=== PATIENT | male | born 2005 | race Asian ===

== ENCOUNTER 2023-05-23 07:21 | Emergency (ER) | payer OTHER ==
[~2023-05-23] VITALS: Ht 160 cm; Wt 53.5 kg
[2023-05-23 07:25] VITALS: BP_SYST 126; PULSE 65; RESP 18; TEMP 97.6; O2SAT 98
[2023-05-23 07:43] VITALS: BP_SYST 126; PULSE 65; RESP 18; TEMP 97.6; O2SAT 98
[2023-05-23] MEDS ORDERED: LIDOCAINE 1% 10 MG/ML, 20 ML MDV INJ ONE (07:45)
[2023-05-23] MEDS ORDERED: DIPHTH,PERTUSS(ACELL),TET VAC 0.5 ML VIAL (Tdap) I.M. ONE (07:45)
[2023-05-23] MEDS ORDERED: BACITRACIN 1 GM OINT TP ONE (07:45)
== END 2023-05-23 07:45 | disposition home or self-care (01) ==
LOC: SED 07:21
DX: S61.213A Laceration without foreign body of left middle finger without damage to nail, initial encounter (principal); W45.8XXA Other foreign body or object entering through skin, initial encounter; Y93.89 Activity, other specified; Y92.89 Other specified places as the place of occurrence of the external cause; Y99.8 Other external cause status
CPT/HCPCS: 99283; 90715; 90471; 12001; J2001

== ENCOUNTER 2023-09-08 11:13 | Emergency (ER) | payer OTHER ==
[~2023-09-08] VITALS: Ht 160 cm; Wt 54.4 kg
[2023-09-08 11:15] VITALS: BP_SYST 139; PULSE 83; RESP 19; TEMP 97.2; O2SAT 99
[2023-09-08] MEDS ORDERED: IBUP-1971 PO (12:51)
[2023-09-08] MEDS ORDERED: HYDR-3917 PO (12:51)
[2023-09-08 13:06] VITALS: O2SAT 99
[2023-09-08 13:09] VITALS: BP_SYST 139; PULSE 83; RESP 19; TEMP 97.2
== END 2023-09-08 13:07 | disposition home or self-care (01) ==
LOC: SED 11:13
DX: S93.401A Sprain of unspecified ligament of right ankle, initial encounter (principal); Z79.899 Other long term (current) drug therapy; W01.0XXA Fall on same level from slipping, tripping and stumbling without subsequent striking against object, initial encounter; Y93.89 Activity, other specified; Y92.89 Other specified places as the place of occurrence of the external cause; Y99.8 Other external cause status
CPT/HCPCS: 99284